=== PATIENT | female | born 1970 | race Caucasian/White ===

== ENCOUNTER 2017-02-17 20:19 | Emergency (ER) | payer OTHER ==
[2017-02-17] MEDS: predniSONE 20 MG TAB PO (21:11)
[2017-02-17] MEDS: IPRATROPIUM (NEB) 0.5 MG/2.5 ML AMP NEB (21:47)
[2017-02-17] MEDS: ALBUTEROL 0.5% (NEB) 2.5 MG/0.5 ML AMP INH (21:47)
[2017-02-17 23:39] LABS: ADD MAN DIFF? NO
[2017-02-17 23:42] LABS: WHITE BLOOD COUNT 9.8 10^3/ul (4.8-10.8)
[2017-02-17 23:42] LABS: BASOPHILS % 0.4 % (0.0-2.0); EOSINOPHILS # 0.3 10^3/ul (0.0-0.5); EOSINOPHILS % 3.2 % (0.0-7.0); HEMATOCRIT 38.6 % (37.0-47.0); LYMPHOCYTES # 1.6 10^3/ul (0.8-2.9); LYMPHOCYTES % 16.2 % (15.0-51.0); MEAN CORPUSCULAR HEMOGLOBIN 30.2 pg (29.0-33.0); MEAN CORPUSCULAR HGB CONC 33.7 g/dl (32.0-37.0); MEAN CORPUSCULAR VOLUME 89.8 fl (82.0-101.0); MEAN PLATELET VOLUME 9.8 fl (7.4-10.4); MONOCYTE # 0.5 10^3/ul (0.3-0.9); MONOCYTES % 5.2 % (0.0-11.0); NEUTROPHIL # 7.2 10^3/ul (1.6-7.5); NEUTROPHILS % 73.5 % (39.0-77.0); PLATELET COUNT 214 10^3/UL (140-415); RED CELL DISTRIBUTION WIDTH 13.3 % (11.5-14.5)
[2017-02-17 23:49] LABS: POSITIVE DIFF @See below
[2017-02-18 00:12] LABS: ANION GAP 13 (8-16); BLOOD UREA NITROGEN 13 mg/dl (7-20); CALCIUM 9.1 mg/dl (8.4-10.2); CARBON DIOXIDE 29 mmol/L (21-31); CHLORIDE 101 mmol/L (97-110); CREATININE 0.64 mg/dl (0.44-1.00); GLUCOSE 97 mg/dl (70-220); POTASSIUM 3.8 mmol/L (3.5-5.1); SODIUM 139 mmol/L (135-144)
[2017-02-18] MEDS: SOD CHLORIDE 0.9% 100 ML (01:07)
[2017-02-18] MEDS: IOHEXOL 300MG/ML 150 ML BTL (01:07)
== END 2017-02-18 02:36 | disposition home or self-care (01) ==
LOC: FTE 02-18 02:36
DX: J45.21 Mild intermittent asthma with (acute) exacerbation (principal); R91.8 Other nonspecific abnormal finding of lung field; Z87.891 Personal history of nicotine dependence
CPT/HCPCS: 36415; 71046; 71260; 80048; 85025; 93005; 94644; 99285-25

== ENCOUNTER 2017-02-22 00:46 | Emergency (ER) | payer OTHER | END 2017-02-22 02:25 | disposition home or self-care (01) | LOC: FTE 00:46 | DX: Z76.0 Encounter for issue of repeat prescription (principal); Z87.891 Personal history of nicotine dependence | CPT/HCPCS: 99281; Z7502 ==